=== PATIENT | female | born 1955 ===

== ENCOUNTER 2018-04-07 05:41 | Day surgery (SDC) | payer OTHER ==
[~2018-04-07 05:41] MED LIST: DIOVAN320 MG PO; LIBRAX PO; NEURONTIN300 MG PO; PRILOSEC10 MG PO
[2018-04-07] MEDS ORDERED: PERCOCET 5-3251 EACH PO (08:12)
[2018-04-07] MEDS ORDERED: RECTICARE30 GM TOP (08:12)
== END 2018-04-07 13:45 | disposition home or self-care (01) ==
LOC: CIR.AMB 05:41 → EDBD 12:30 → CIR.AMB 13:45
DX: K60.1 Chronic anal fissure (principal)